=== PATIENT | male | born 1945 | race American Indian/Alaskan Native ===

== ENCOUNTER 2017-02-27 16:43 | Emergency (ER) | payer MEDICARE ==
[2017-02-27] MEDS ORDERED: NACL 0.9% 1000 ML 1,000 ML IV ONE ×2 (17:31→18:51)
[2017-02-27 18:04] LABS: Hematocrit 33.6 % (35.5-45.6); Hemoglobin 10.5 gm/dl (11.8-15.2); Mean Corpuscular HGB Conc 31 % (32-34); Mean Corpuscular Volume 76 fl (84-94); Platelet Count 185 K/mm3 (140-440); Red Cell Distribution Width 15.4 % (13.2-15.2); White Blood Count 3.1 K/mm3 (4.5-11.0)
[2017-02-27 18:06] LABS: INR 1.05 (0.87-1.13)
[2017-02-27 18:07] LABS: Partial Thromboplastin Time 28.6 Sec. (24.2-36.6)
[2017-02-27 18:08] LABS: Mean Corpuscular Hemoglobin 24 pg (28-32)
[2017-02-27 18:11] LABS: Alanine Aminotransferase 16 units/L (7-56); Albumin 3.9 g/dL (3.9-5); Albumin/Globulin Ratio 1.6 %; Alkaline Phosphatase 770 units/L (35-129); Anion Gap 23 mmol/L; BUN/Creatinine Ratio 18.57; Blood Urea Nitrogen 13 mg/dL (9-20); Calcium 8.7 mg/dL (8.4-10.2); Carbon Dioxide 22 mmol/L (22-30); Chloride 87.5 mmol/L (98-107); Glucose 440 mg/dL (75-100); Lipase 43 units/L (13-60); Potassium 4.1 mmol/L (3.6-5.0); Sodium 128 mmol/L (137-145); Total Protein 6.4 g/dL (6.3-8.2)
[2017-02-27 19:08] LABS: Basophils % (Manual) 0 % (0.0-1.8); Blastocytes % (Manual) 0 %
[2017-02-27 19:09] LABS: Anisocytosis 1+; Diff Status Complete; Elliptocytes 1+; Platelet Estimate Consistent w Auto
[2017-02-27] MEDS ORDERED: NACL ONE (19:10)
--- NOTE | 2017-02-27 20:30 | Cat Scan Report ---
FINAL REPORT PROCEDURE: CT ABDOMEN PELVIS W CON TECHNIQUE: Computerized axial tomography of the abdomen and pelvis was performed after the IV injection of iodinated nonionic contrast. HISTORY: lower abdominal pain COMPARISON: No prior studies are available. FINDINGS: Lower Lung murillo: Minimal linear atelectasis. Lung bases otherwise are clear. Upper Abdomen: There is increased density dependently in the gallbladder suggesting sludge and or gallstones. The gallbladder is otherwise unremarkable. The liver showed no focal abnormalities. The pancreas and the spleen as well as the adrenal glands are unremarkable. Kidneys, Ureters and Urinary bladder: No abnormalities are identified. Retroperitoneum: Atherosclerotic changes are seen in the abdominal aorta. No aneurysm is visualized. Nonspecific subcentimeter lymph nodes are seen in the retroperitoneum. No pathologically enlarged lymph nodes are identified. Bowel: The rectum is distended with stool. The patient may be impacted. Moderate amount of stool is scattered in the remainder of the colon. Small bowel loops are not significantly distended. I do not see evidence of bowel obstruction. No ascites or free intraperitoneal gas is seen. Reproductive organs: Multiple metallic implants are seen in the bases prostate gland consistent with treatment for prostate malignancy. Other: There is extensive sclerotic change seen throughout majority of the patient's skeletal system. The appearance suggest diffuse blastic metastatic disease. IMPRESSION: Metallic implants seen in the prostate gland consistent with treatment for prostate malignancy. Diffuse blastic change seen throughout the majority of the patient's skeleton consistent with extensive blastic metastatic disease. Increased density dependently in the gallbladder suggesting sludge and or gallstones. Stool pattern as described. The rectum appears significantly distended with stool. The patient may be impacted. No evidence of bowel obstruction.
--- NOTE | 2017-02-27 22:07 | Emergency Department Report ---
ED Abdominal Pain HPI - General Chief Complaint: Rectal Pain Stated Complaint: CONSTIPATION Time Seen by Provider: 02/27/17 18:50 Source: patient Mode of arrival: Ambulatory Limitations: No Limitations - History of Present Illness Initial Comments: 71-year-old male with past medical history prostate cancer presenting to the ED complaining of constipation. Pt states for several weeks he had difficulty using the restroom with severe constipation. Pt states he can feel the stool at the end of his rectum however he cannot get it out. Pt states over the last several days it has been causing him discomfort in his lower abdomen. Pt states pain is a constant dull ache, it has no relaxing nor worsening factors. Pt denies: fever/chills, chest pain, N/V/D MD Complaint: abdominal pain -: week(s) Location: LLQ Radiation: none Migration to: no migration Severity scale (0 -10): 10 Quality: cramping Consistency: intermittent Worsens With: bowel movement Associated Symptoms: denies other symptoms. denies: nausea, vomiting, diarrhea , chills, constipation, dysuria, hematemesis, melena, hematuria, anorexia, syncope - Related Data Previous Rx's Medication Instructions Recorded Last Taken Type Docusate Sodium [Colace] 100 mg PO BID PRN #60 capsule 02/27/17 Unknown Rx Mineral Oil [Fleet Mineral Oil] 133 ml SD BID #4 bottle 02/27/17 Unknown Rx Allergies Allergy/AdvReac Type Severity Reaction Status Date / Time No Known Allergies Allergy Verified 02/27/17 18:59 ED Review of Systems ROS: Stated complaint: CONSTIPATION Other details as noted in HPI Constitutional: denies: chills, fever Eyes: denies: eye pain, eye discharge, vision change ENT: denies: ear pain, throat pain Respiratory: denies: cough, shortness of breath, wheezing Cardiovascular: denies: chest pain, palpitations Endocrine: no symptoms reported Gastrointestinal: constipation. denies: abdominal pain, nausea, vomiting, diarrhea, hematemesis, hematochezia Genitourinary: denies: urgency, dysuria Musculoskeletal: denies: back pain, joint swelling, arthralgia Skin: denies: rash, lesions Neurological: denies: headache, weakness, paresthesias Psychiatric: denies: anxiety, depression Hematological/Lymphatic: denies: easy bleeding, easy bruising ED Past Medical Hx - Past Medical History Hx Diabetes: Yes Hx of Cancer: Yes (prostate) - Surgical History Additional Surgical History: "prostate" - Social History Smoking Status: Current Every Day Smoker Substance Use Type: Prescribed - Medications Home Medications: Home Medications Medication Instructions Recorded Confirmed Last Taken Type Docusate Sodium [Colace] 100 mg PO BID PRN #60 capsule 02/27/17 Unknown Rx Mineral Oil [Fleet Mineral Oil] 133 ml SD BID #4 bottle 02/27/17 Unknown Rx ED Physical Exam - General Limitations: No Limitations General appearance: alert, in no apparent distress - Head Head exam: Present: atraumatic, normocephalic - Eye Eye exam: Present: normal appearance - ENT ENT exam: Present: mucous membranes moist - Neck Neck exam: Present: normal inspection - Respiratory Respiratory exam: Present: normal lung sounds bilaterally. Absent: respiratory distress - Cardiovascular Cardiovascular Exam: Present: regular rate, normal rhythm. Absent: systolic murmur, diastolic murmur, rubs, gallop - GI/Abdominal GI/Abdominal exam: Present: soft, tenderness, normal bowel sounds. Absent: distended, guarding, rebound, hyperactive bowel sounds, hypoactive bowel sounds , organomegaly - Rectal Rectal exam: Present: deferred, normal rectal tone, fecal impaction - Extremities Exam Extremities exam: Present: normal inspection - Back Exam Back exam: Present: normal inspection - Neurological Exam Neurological exam: Present: alert, oriented X3 - Psychiatric Psychiatric exam: Present: normal affect, normal mood - Skin Skin exam: Present: warm, dry, intact, normal color. Absent: rash ED Course Vital Signs 02/27/17 02/27/17 02/27/17 17:19 17:32 17:34 Temperature 99.0 F Pulse Rate 138 H 112 H Respiratory 20 20 Rate Blood Pressure 117/98 150/80 O2 Sat by Pulse 100 100 100 Oximetry 02/27/17 02/27/17 02/27/17 17:51 18:00 18:30 Temperature Pulse Rate 105 H 105 H Respiratory 20 15 17 Rate Blood Pressure 139/80 118/53 O2 Sat by Pulse 100 100 100 Oximetry 02/27/17 02/27/17 02/27/17 19:00 19:17 19:50 Temperature Pulse Rate 119 H 108 H Respiratory 19 18 16 Rate Blood Pressure 127/60 127/60 O2 Sat by Pulse 100 100 Oximetry 07/02/27/17 02/27/17 20:00 20:30 21:00 Temperature Pulse Rate 112 H 109 H 101 H Respiratory 14 11 L Rate Blood Pressure 124/64 115/48 120/68 O2 Sat by Pulse 100 100 100 Oximetry 02/27/17 02/27/17 21:30 22:00 Temperature Pulse Rate 115 H 112 H Respiratory 21 21 Rate Blood Pressure 119/61 107/51 O2 Sat by Pulse 100 99 Oximetry - Reevaluation(s) Reevaluation #1: 02/27/17 22:08 Pt tolerated disimpaction well, there was a large amount of stool - Rectal Disimpaction Consent Obtained: verbal consent Indication: fecal impaction Procedural Sedation: No Technique: manual disimpaction with Result: significant stool output Complications: none Patient Tolerated Procedure: well, no complications ED Medical Decision Making - Lab Data Result diagrams: 02/27/17 17:33 02/27/17 17:33 - EKG Data -: EKG Interpreted by Pa EKG shows normal: sinus rhythm (114), axis (upright ), intervals (normal ) Rate: tachycardia - Radiology Data Radiology results: report reviewed, image reviewed CT abdomen and pelvis with contrast final impression: Metallic implants seen in the prostate gland consistent with treatment for prostate malignancy. Diffuse blastic changes seen throughout the majority of the patient's skeleton consistent with extensive blastic metastatic disease. Increased density dependently in the gallblader suggesting sludge or gallstones. Stool pattern as described. The rectum appear significantly distended with stool. The patient may be impacted. No evidence of bowel obstruction. Dr Ligia JAIMES - Medical Decision Making 71 yo male with past medical history prostate cancer presenting to do constipation. 1) Constipation- pt tolerated fecal disimpaction well. I have given a copy of CT STEMI follow up with primary doctor concerning blastic lesions appreciated on his skeleton pt agrees he is stable to dc home and follow up with pcp. Of note, pt HR was documented to be 101 at the time I discharge him, shortly after disimpaction. I was not notified that he had HR of 112 prior to leaving the ED. Critical Care Time: No Critical care attestation.: If time is entered above; I have spent that time in minutes in the direct care of this critically ill patient, excluding procedure time. ED Disposition Clinical Impression: Constipation Disposition: DC-01 TO HOME OR SELFCARE Is pt being admited?: No Does the pt Need Aspirin: No Condition: Stable Instructions: Constipation (ED), High Fiber Diet (ED) Prescriptions: Docusate Sodium [Colace] 100 mg PO BID PRN #60 capsule PRN Reason: Constipation Mineral Oil [Fleet Mineral Oil] 133 ml SD BID #4 bottle Referrals: PRIMARY CARE, [Primary Care Provider] - 3-5 Days ENID CLAYTON MD [Staff Physician] - 2-3 Days KAYDEN MENDIETA MD [Staff Physician] - 2-3 Days
[2017-02-27 22:33] VITALS: BP 107/51
== END 2017-02-27 22:45 | disposition home or self-care (01) ==
LOC: ED 16:43
DX: K59.00 Constipation, unspecified (principal); F17.200 Nicotine dependence, unspecified, uncomplicated; E11.9 Type 2 diabetes mellitus without complications; Z85.46 Personal history of malignant neoplasm of prostate
CPT/HCPCS: 36415; 74177; 80053; 82962; 83690; 85007; 85025; 85610; 85730; 86850; 86900; 86901; 93005; 93010; 96361; 96374; 99284; J7030; Q9967; J1815

== ENCOUNTER 2017-06-24 17:12 | Emergency (ER) | payer MEDICARE ==
--- NOTE | 2017-06-24 17:49 | Emergency Department Report ---
Chief Complaint: Back Pain/Injury Stated Complaint: BACK PAIN - HPI History of Present Illness: This is a 72-year-old male that presents with low back pain 2 days. Patient denies any trauma. Denies any history of this. Denies any dysuria, polyuria, hematuria, chest pain, shortness of breath, headache, stiff neck, numbness or tingling. Denies any fever or chills. Past medical history includes prostate cancer, diabetes. - Exam Vital Signs: Vital Signs 06/24/17 17:36 Temperature 98.2 F Pulse Rate 96 H Respiratory 18 Rate Blood Pressure 106/67 O2 Sat by Pulse 99 Oximetry Physical Exam: GENERAL: The patient is a well-developed, well-nourished female in no apparent distress. Patient is alert and acting appropriately for age. Alert and oriented 3, no apparent distress, normal gait, atraumatic. HEART: Regular rate and rhythm without murmur, rubs or gallops. No reproducible. S1, S2 present, regular rate and rhythm without murmur, no rubs, no gallops. EXTREMITIES: Without any cyanosis, clubbing, rash, lesions or edema. Peripheral pulses intact. Capillary refill less than 2 seconds. Full range of motion bilaterally. Back; positive lumbar spinal tenderness. Negative bladder or bowel stability. Negative straight leg test. MSE screening note: Focused history and physical exam performed. Due to findings the following was ordered: 1- This initial assessment/diagnostic orders/clinical plan/ treatment(s) is/are subject to change based on pt's health status, clinical progression and re- assessment by fellow clinical providers in the ED. Further treatment and workup at subsequent clinical provers discretion. Patient/guardians urged not to elope from ED as their condition may be serious if not clinically assessed and managed. 2-CBC, BMP, UA, lumbar spinal x-ray ED Disposition for MSE Condition: Stable
[2017-06-24 18:05] LABS: Basophils % (Auto) 0.6 % (0.0-1.8); Eosinophils % (Auto) 0.4 % (0.0-4.3); Hematocrit 35.3 % (35.5-45.6); Hemoglobin 10.9 gm/dl (11.8-15.2); Mean Corpuscular HGB Conc 31 % (32-34); Mean Corpuscular Hemoglobin 24 pg (28-32); Mean Corpuscular Volume 78 fl (84-94); Platelet Count 241 K/mm3 (140-440); Red Blood Count 4.55 M/mm3 (3.65-5.03); Red Cell Distribution Width 15.7 % (13.2-15.2)
[2017-06-24 18:20] LABS: Anion Gap 16 mmol/L; BUN/Creatinine Ratio 17; Blood Urea Nitrogen 12 mg/dL (9-20); Calcium 9.1 mg/dL (8.4-10.2); Carbon Dioxide 28 mmol/L (22-30); Chloride 91.3 mmol/L (98-107); Glucose 325 mg/dL (75-100); Potassium 4.3 mmol/L (3.6-5.0); Sodium 131 mmol/L (137-145)
[2017-06-24] MEDS ORDERED: ZOFRAN IV ONE (21:08)
[2017-06-24] MEDS ORDERED: SUBLIMAZE IV ONE (21:08)
--- NOTE | 2017-06-24 21:13 | Emergency Department Report ---
HPI - General Chief Complaint: Back Pain/Injury Time Seen by Provider: 06/24/17 21:00 - HPI HPI: Room 3 The patient is a 72-year-old male presenting with a chief complaint of low back pain. The patient has a history of metastatic prostate CA states 3 days ago he developed sharp and constant low back pain all the way across his back. Patient states this pain is new and he has not had it in the past. Patient also admits to constipation for one week. Patient states he had one episode of vomiting last week but not currently. Patient denies fever, dysuria, hematuria , increased thirst or numbness. The patient currently gets his pain a score of 10/10 Location: Low back Duration: [See above] Quality: Sharp, constant Severity: 10/10 Modifying factors: [see above] Context: [see above] Mode of transportation: [not driving] ED Past Medical Hx - Past Medical History Previous Medical History?: Yes Hx Diabetes: Yes Hx of Cancer: Yes (prostate, metastatic) - Surgical History Past Surgical History?: Yes Additional Surgical History: "prostate" I-25 seed implant - Family History Family history: no significant - Social History Smoking Status: Current Every Day Smoker (1/7 per day) Substance Use Type: None (denies illicit drug use), Prescribed - Medications Home Medications: Home Medications Medication Instructions Recorded Confirmed Last Taken Type Docusate Sodium [Colace] 100 mg PO BID PRN #60 capsule 02/27/17 Unknown Rx Mineral Oil [Fleet Mineral Oil] 133 ml [place] BID #4 bottle 02/27/17 Unknown Rx Docusate Sodium [Colace] 100 mg PO BID #60 capsule 06/24/17 Unknown Rx oxyCODONE /ACETAMINOPHEN [Percocet 1 - 2 tab PO Q6HR PRN #20 tablet 06/24/17 Unknown Rx 5/325] ED Review of Systems ROS: Stated complaint: BACK PAIN Other details as noted in HPI Constitutional: denies: fever Endocrine: denies: increased thirst Gastrointestinal: abdominal pain, nausea, vomiting, constipation. denies: diarrhea Musculoskeletal: back pain, myalgia Neurological: denies: paresthesias Physical Exam - Physical Exam Vital Signs: Vital Signs 06/24/17 17:36 Temperature 98.2 F Pulse Rate 96 H Respiratory 18 Rate Blood Pressure 106/67 O2 Sat by Pulse 99 Oximetry Physical Exam: GENERAL: The patient is well-developed well-nourished male lying on stretcher not appearing to be in acute distress. [] HEENT: Normocephalic. Atraumatic. Extraocular motions are intact. Patient has moist mucous membranes. NECK: Supple. Trachea midline CHEST/LUNGS: Clear to auscultation. There is no respiratory distress noted. HEART/CARDIOVASCULAR: Regular. There is no tachycardia. There is no gallop rub or murmur. ABDOMEN: Abdomen is soft, nontender. Patient has normal bowel sounds. There is no abdominal distention. SKIN: There is no rash. There is no edema. There is no diaphoresis. NEURO: The patient is awake, alert, and oriented. The patient is cooperative. The patient has normal speech MUSCULOSKELETAL: There is no tenderness to palpation of the lumbar axial spine. No step-offs. There is no evidence of acute injury. ED Course Vital Signs 06/24/17 17:36 Temperature 98.2 F Pulse Rate 96 H Respiratory 18 Rate Blood Pressure 106/67 O2 Sat by Pulse 99 Oximetry ED Medical Decision Making - Lab Data Result diagrams: 06/24/17 17:51 06/24/17 17:51 Laboratory Tests 06/24/17 06/24/17 06/24/17 17:51 17:51 21:35 WBC 3.0 L RBC 4.55 Hgb 10.9 L Hct 35.3 L MCV 78 L MCH 24 L MCHC 31 L RDW 15.7 H Plt Count 241 Lymph % (Auto) 23.1 Russell % (Auto) 8.2 H Eos % (Auto) 0.4 Baso % (Auto) 0.6 Lymph # 0.7 L Russell # 0.2 Eos # 0.0 Baso # 0.0 Seg Neutrophils % 67.7 Seg Neutrophils # 2.0 Sodium 131 L Potassium 4.3 Chloride 91.3 L Carbon Dioxide 28 Anion Gap 16 BUN 12 Creatinine 0.7 L Estimated GFR > 60 BUN/Creatinine Ratio 17 Glucose 325 H POC Glucose Calcium 9.1 Urine Color [place] Urine Turbidity Clear Urine pH 6.0 Ur Specific [place] 1.028 Urine Protein <15 mg/dl Urine Glucose (UA) 150 Urine Ketones Neg Urine Blood Neg Urine Nitrite Neg Urine Bilirubin Neg Urine Urobilinogen < 2.0 Ur Leukocyte Esterase Neg Urine WBC (Auto) 2.0 Urine RBC (Auto) 2.0 U Epithel Cells (Auto) 1.0 Urine Mucus Few 06/24/17 22:52 WBC RBC Hgb Hct MCV MCH MCHC RDW Plt Count Lymph % (Auto) Russell % (Auto) Eos % (Auto) Baso % (Auto) Lymph # [place] # Eos # Baso # Seg Neutrophils % Seg Neutrophils # Sodium Potassium Chloride Carbon Dioxide Anion Gap BUN Creatinine Estimated GFR BUN/Creatinine Ratio Glucose POC Glucose 260 H Calcium Urine Color Urine Turbidity Urine pH Ur Specific [place] Urine Protein Urine Glucose (UA) Urine Ketones Urine Blood Urine Nitrite Urine Bilirubin Urine Urobilinogen Ur Leukocyte Esterase Urine WBC (Auto) Urine RBC (Auto) U Epithel Cells (Auto) Urine Mucus - Radiology Data Radiology results: report reviewed (CT abdomen and pelvis), image reviewed ( lumbar spine x-ray, CT abdomen and pelvis) interpreted by me: Lumbar spine x-ray-no acute fracture seen FINAL REPORT PROCEDURE: CT ABDOMEN PELVIS WO CON TECHNIQUE: Computerized axial tomography of the abdomen and pelvis was performed without intravenous contrast. This study is performed without intravascular contrast material and its sensitivity for abdominal and pelvic pathology, including neoplasms, inflammation, abscess, free fluid, thrombosis, arterial dissection and infarction, is reduced compared with a contrast enhanced study. HISTORY: low back pain. History of metastatic prostate CA COMPARISON: CT exam dated February 27, 2017 FINDINGS: Mild bronchiectasis is seen in the lung bases. 2 millimeter subpleural nodular density is seen at the right CP angle, unchanged from prior study. Two similar densities are seen at the left CP angle, unchanged. Findings are likely due to benign granuloma or minimal hypoventilatory changes. Diffuse sclerotic metastases are seen, similar to prior study. No lumbar compression fracture is seen. No pelvic or hip fracture is seen. Mild lumbar spondylosis is seen. Stable exostosis or heterotopic bone formation is seen in the right pubic region. Spleen and liver appear normal. Calcified granuloma is seen in the superior aspect of the liver. Mild cholelithiasis is seen without evidence of cholecystitis or biliary ductal dilation. No pancreatic abnormality is seen. The adrenal glands and abdominal aorta are normal in size. No renal abnormality is seen. Bladder is partially distended without obvious abnormality. Radiation implants are seen in the region of the prostate gland. No suspicious lymphadenopathy or free fluid is seen. There is moderate constipation in the ascending, transverse, and descending colon. Little fecal material is seen in the rectosigmoid colon. No evidence of small bowel obstruction is seen. IMPRESSION: Diffuse sclerotic bony metastases are seen without evidence of acute fracture. There is moderate constipation. Cholelithiasis is seen without evidence of cholecystitis. Transcribed By: WW Dictated By: NIA IVEY JR, MD Electronically Authenticated By: NIA IVEY JR, MD Signed Date/Time: 06/24/171741 DD/ 41 TD/TT: 06/24/171741 - Differential Diagnosis vertebral metastases, renal colic, ureter obstruction, pyelonephritis Critical care attestation.: If time is entered above; I have spent that time in minutes in the direct care of this critically ill patient, excluding procedure time. ED Disposition Clinical Impression: Back pain, Prostate cancer metastatic to bone Disposition: - TO HOME OR SELFCARE Is pt being admited?: No Does the pt Need Aspirin: No Condition: Stable Additional Instructions: Return to the emergency department immediately should you develop worsening symptoms, fever, inability to tolerate food or liquid or any other concerns. Prescriptions: Docusate Sodium [Colace] 100 mg PO BID #60 capsule oxyCODONE /ACETAMINOPHEN [Percocet 5/325] 1 - 2 tab PO Q6HR PRN #20 tablet PRN Reason: Pain Referrals: DYAN APPLE MD [Primary Care Provider] - 3-5 Days Time of Disposition: 00:00
--- NOTE | 2017-06-24 21:45 | Cat Scan Report ---
FINAL REPORT PROCEDURE: CT ABDOMEN PELVIS WO CON TECHNIQUE: Computerized axial tomography of the abdomen and pelvis was performed without intravenous contrast. This study is performed without intravascular contrast material and its sensitivity for abdominal and pelvic pathology, including neoplasms, inflammation, abscess, free fluid, thrombosis, arterial dissection and infarction, is reduced compared with a contrast enhanced study. HISTORY: low back pain. History of metastatic prostate CA COMPARISON: CT exam dated February 27, 2017 FINDINGS: Mild bronchiectasis is seen in the lung bases. 2 millimeter subpleural nodular density is seen at the right CP angle, unchanged from prior study. Two similar densities are seen at the left CP angle, unchanged. Findings are likely due to benign granuloma or minimal hypoventilatory changes. Diffuse sclerotic metastases are seen, similar to prior study. No lumbar compression fracture is seen. No pelvic or hip fracture is seen. Mild lumbar spondylosis is seen. Stable exostosis or heterotopic bone formation is seen in the right pubic region. Spleen and liver appear normal. Calcified granuloma is seen in the superior aspect of the liver. Mild cholelithiasis is seen without evidence of cholecystitis or biliary ductal dilation. No pancreatic abnormality is seen. The adrenal glands and abdominal aorta are normal in size. No renal abnormality is seen. Bladder is partially distended without obvious abnormality. Radiation implants are seen in the region of the prostate gland. No suspicious lymphadenopathy or free fluid is seen. There is moderate constipation in the ascending, transverse, and descending colon. Little fecal material is seen in the rectosigmoid colon. No evidence of small bowel obstruction is seen. IMPRESSION: Diffuse sclerotic bony metastases are seen without evidence of acute fracture. There is moderate constipation. Cholelithiasis is seen without evidence of cholecystitis.
[2017-06-24 21:54] LABS: Bilirubin,Urine NEG (Negative); Blood,Urine NEG (Negative); Ketones,Urine NEG (Negative); Leukocyte Esterase,Urine NEG (Negative); Mucus,Urine FEW /HPF; Nitrite,Urine NEG (Negative); Protein,Urine <15 mg/dL mg/dL (Negative); Urobilinogen,Urine < 2.0 mg/dL (<2.0)
[2017-06-24] MEDS ORDERED: NACL 0.9% 1000 ML 1,000 ML IV ONE (22:49)
[2017-06-24] MEDS ORDERED: NACL 0.9% 1000 ML 1,000 ML ONE (22:53)
[2017-06-25 00:30] VITALS: BP 137/63
--- NOTE | 2017-06-25 07:32 | XRay Report ---
LUMBOSACRAL SPINE, 3 VIEWS: History: Spinal tenderness Findings: The bony structures are diffusely sclerotic which is unchanged since CT abdomen pelvis dated 02/27/17. This probably represents diffuse metastasis from prostate cancer. Renal osteodystrophy could be considered. Normal height and alignment of the vertebral bodies. No evidence for fracture. Minimal degenerative changes are present. The SI joints are within normal limits. Impression: No acute process. Minimal spondylosis. Probable diffuse bony metastasis from prostate cancer.
== END 2017-06-25 00:41 | disposition home or self-care (01) ==
LOC: ED 17:12
DX: M54.5 Low back pain (principal); C61 Malignant neoplasm of prostate; C79.51 Secondary malignant neoplasm of bone; E11.9 Type 2 diabetes mellitus without complications; F17.200 Nicotine dependence, unspecified, uncomplicated; Z98.890 Other specified postprocedural states
CPT/HCPCS: 36415; 72100; 74176; 80048; 81001; 82962; 85025; 96361; 96374; 96375; 99284; J2405; J3010; J7030

== ENCOUNTER 2017-08-02 05:15 | Emergency (ER) | payer MEDICARE ==
[2017-08-02] MEDS ORDERED: NORCO 5/325 PO ONE (08:37)
[2017-08-02 08:50] LABS: Basophils % (Auto) 0.7 % (0.0-1.8); Eosinophils % (Auto) 0.4 % (0.0-4.3); Hematocrit 33.9 % (35.5-45.6); Hemoglobin 10.7 gm/dl (11.8-15.2); Lymphocytes # (Auto) 0.7 K/mm3 (1.2-5.4); Lymphocytes % (Auto) 23.6 % (13.4-35.0); Mean Corpuscular HGB Conc 32 % (32-34); Mean Corpuscular Volume 77 fl (84-94); Monocytes # (Auto) 0.3 K/mm3 (0.0-0.8); Monocytes % (Auto) 9.9 % (0.0-7.3); Platelet Count 197 K/mm3 (140-440); Red Blood Count 4.39 M/mm3 (3.65-5.03); Red Cell Distribution Width 15.6 % (13.2-15.2)
[2017-08-02 08:55] LABS: Mean Corpuscular Hemoglobin 24 pg (28-32)
[2017-08-02 09:00] LABS: INR 1.01 (0.87-1.13); Partial Thromboplastin Time 32.8 Sec. (24.2-36.6)
[2017-08-02 09:08] LABS: Albumin 3.7 g/dL (3.9-5); BUN/Creatinine Ratio 13; Blood Urea Nitrogen 8 mg/dL (9-20); Calcium 9.4 mg/dL (8.4-10.2); Hemolysis Index 11
[2017-08-02 09:09] LABS: Alanine Aminotransferase < 5 units/L (7-56)
--- NOTE | 2017-08-02 10:21 | Cat Scan Report ---
CT PELVIS WITHOUT CONTRAST: 08/02/17 05:15:00 CLINICAL: Fall and pelvic pain. History of metastatic prostate cancer. COMPARISON: 06/24/17 TECHNIQUE: Volumetric acquisition and 1.25 millimeter axial scan reconstructions without contrast. FINDINGS: Pelvis: Diffuse skeletal metastasis with marked diffuse increased density of the bones as well as numerous lytic lesions. No fracture or dislocation. A benign exostosis of the right pubic bone. Brachy therapy seeds in the prostate. The prostate measures approximately 3.9 x 3.3 cm. The urinary bladder is normal with smooth thin wall. Normal rectum with fluid and air. The sigmoid colon is normal with fluid and air. Imaged portions of small bowel and colon are normal. Some retained barium in the colon. No pneumoperitoneum. No evidence of hemorrhage. A metal surgical staple in the perineum. IMPRESSION:Diffuse skeletal metastasis. No fracture or dislocation.
--- NOTE | 2017-08-02 10:23 | Cat Scan Report ---
CT RIGHT HIP AND THIGH WITHOUT CONTRAST: 08/02/17 08:37:00 CLINICAL: Fall and pain. Metastatic prostate cancer. TECHNIQUE: Volumetric acquisition and 1.25-mm axial scan reconstructions of the hip and entire femur without contrast. Sagittal and coronal reformats were performed. FINDINGS: No fracture or dislocation.Diffuse predominantly blastic skeletal metastasis. Normal soft tissues. No joint effusion. IMPRESSION: Diffuse skeletal metastasis. No fracture or dislocation.
--- NOTE | 2017-08-02 10:30 | Cat Scan Report ---
CT LUMBAR SPINE WITHOUT CONTRAST: 08/02/17 05:15:00 CLINICAL: Fall and back pain. Diffuse prostate skeletal metastasis. TECHNIQUE: Volumetric acquisition and 1.25-mm axial scan reconstructions without contrast. Sagittal and coronal reformats were performed. FINDINGS: Normal vertebral body height, alignment and disk spaces. No fracture or subluxation.Extensive diffuse predominantly blastic skeletal metastasis involving all of the bones. L1-2:Intact. L2-3:Intact. L3-4:Mild circumferential disc bulge L4-5:Moderate circumferential disc bulge and a broad-based left foraminal disc protrusion. L5-S1:Small broad-based central disc protrusion. IMPRESSION: 1. No fracture or subluxation. 2. Diffuse skeletal metastasis. 3. Degenerative disc disease with a moderate-sized broad-based left L4-5 foraminal disc protrusion which is of indeterminate age. Lesser degrees of degenerative disc disease at L3-4 and L5-S1.
--- NOTE | 2017-08-02 10:50 | Emergency Department Report ---
ED Fall HPI - General Chief Complaint: Fall Stated Complaint: BACK PAIN S/P GLF Time Seen by Provider: 08/02/17 07:41 Source: patient Mode of arrival: Wheelchair - Related Data Previous Rx's Medication Instructions Recorded Last Taken Type Docusate Sodium [Colace] 100 mg PO BID PRN #60 capsule 02/27/17 Unknown Rx Mineral Oil [Fleet Mineral Oil] 133 ml UT BID #4 bottle 02/27/17 Unknown Rx Docusate Sodium [Colace] 100 mg PO BID #60 capsule 06/24/17 Unknown Rx oxyCODONE /ACETAMINOPHEN [Percocet 1 - 2 tab PO Q6HR PRN #20 tablet 06/24/17 Unknown Rx 5/325] Allergies Allergy/AdvReac Type Severity Reaction Status Date / Time No Known Allergies Allergy Verified 02/27/17 18:59 ED Review of Systems ROS: Stated complaint: BACK PAIN S/P GLF Other details as noted in HPI ED Past Medical Hx - Past Medical History Hx Diabetes: Yes Additional medical history: 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 - Surgical History Additional Surgical History: "prostate" I-25 seed implant - Social History Smoking Status: Current Every Day Smoker Substance Use Type: None - Medications Home Medications: Home Medications Medication Instructions Recorded Confirmed Last Taken Type Docusate Sodium [Colace] 100 mg PO BID PRN #60 capsule 02/27/17 Unknown Rx Mineral Oil [Fleet Mineral Oil] 133 ml UT BID #4 bottle 02/27/17 Unknown Rx Docusate Sodium [Colace] 100 mg PO BID #60 capsule 06/24/17 Unknown Rx oxyCODONE /ACETAMINOPHEN [Percocet 1 - 2 tab PO Q6HR PRN #20 tablet 06/24/17 Unknown Rx 5/325] ED Physical Exam - General Limitations: No Limitations ED Course Vital Signs 08/02/17 05:20 Temperature 98.4 F Pulse Rate 109 H Respiratory 18 Rate Blood Pressure 134/80 O2 Sat by Pulse 99 Oximetry ED Medical Decision Making - Lab Data Result diagrams: 08/02/17 08:23 08/02/17 08:23 Critical care attestation.: If time is entered above; I have spent that time in minutes in the direct care of this critically ill patient, excluding procedure time. ED Disposition Clinical Impression: Fall, Bone cancer Disposition: DC-01 TO HOME OR SELFCARE Is pt being admited?: No Does the pt Need Aspirin: No Condition: Stable Additional Instructions: fall precautions at home call oncology on Friday continue home pain meds no fractures on CT today may want to consider palliative or hospice care to assist with patient. Referrals: ARIANA SARABIA MD [Primary Care Provider] - 3-5 Days Time of Disposition: 10:48
[2017-08-02 11:04] VITALS: BP 166/86
== END 2017-08-02 11:34 | disposition home or self-care (01) ==
LOC: ED 05:15
DX: M54.9 Dorsalgia, unspecified (principal); C79.51 Secondary malignant neoplasm of bone; C61 Malignant neoplasm of prostate
CPT/HCPCS: 36415; 72131; 72192; 80053; 85025; 85610; 85730